=== PATIENT | female | born 1955 | race Caucasian/White ===

== ENCOUNTER 2016-11-04 07:09 | Day surgery (SDC) | payer OTHER ==
[~2016-11-04] VITALS: Ht 162.6 cm; Wt 76.3 kg
[2016-11-04] VITALS (16 sets, daily range): BP systolic 89–152; BP diastolic 49–76; PULSE 70–100; RESP 15–21; Ht 162.6 cm; Wt 76.3 kg
[~2016-11-04 07:09] MED LIST: ASPI-664 PO; EPHEDrine SULFATE 50 MG/5 ML SYG ONE; OMEG10006 PO
[2016-11-04] MEDS ORDERED: SOD CHLORIDE 0.9% 1,000 ML IV ONE (07:30)
[2016-11-04] MEDS ORDERED: CEFAZOLIN 2 GM/50 ML (PMX) 50 ML IVPB ONE (07:30)
[2016-11-04] MEDS ORDERED: MULTI PO (07:45)
[2016-11-04] MEDS ORDERED: ROCURONIUM 50 MG INJ ONE (08:01)
[2016-11-04] MEDS ORDERED: LIDOCAINE 2% (SDV) 5 ML INJ ONE (08:01)
[2016-11-04] MEDS ORDERED: SUCCINYLCHOLINE CHLORIDE 100 MG/5 ML SYG IV ONE (08:01)
[2016-11-04] MEDS ORDERED: FENTAnyl 50 MCG/ML VIAL ONE (08:02)
[2016-11-04] MEDS ORDERED: CEFAZOLIN 1 GM INJ ONE (08:02)
[2016-11-04] MEDS ORDERED: PROPOFOL 20 ML ONE (08:02)
[2016-11-04] MEDS ORDERED: MIDAZOLAM 1 MG/ML 2 ML INJ ONE (08:02)
[2016-11-04] MEDS ORDERED: HYDROmorphONE (0.2 MG/ML) 10ML SYG IV PRN (08:30)
[2016-11-04] MEDS ORDERED: MEPERIDINE 25 MG INJ IV PRN (08:30)
[2016-11-04] MEDS ORDERED: PROCHLORPERAZINE 10 MG INJ IV PRN (08:30)
[2016-11-04] MEDS ORDERED: FENTAnyl 50 MCG/ML VIAL IV PRN (08:30)
[2016-11-04] MEDS ORDERED: DIPHENHYDRAMINE 50 MG INJ IV PRN (08:30)
[2016-11-04] MEDS ORDERED: OXYCODONE/ACETAMINOPHEN (5/325) TAB PO PRN ×2 (08:30)
[2016-11-04] MEDS ORDERED: ONDANSETRON 4 MG INJ IV PRN ×2 (08:30→11:00)
[2016-11-04] MEDS ORDERED: PHENYLephrine (100 MCG/ML) 5ML SYG ONE (09:39)
--- NOTE | 2016-11-04 09:39 | HPN ---
Date/Time of Note Date/Time of Note DATE: 11/04/16 TIME: 09:39 Interval H&P Admission Note Pt. seen H&P reviewed: No system changes GUIDO PRASAD MD Nov 04, 2016 09:39
[2016-11-04] MEDS ORDERED: METOCLOPRAMIDE 10 MG INJ ONE (09:40)
[2016-11-04] MEDS ORDERED: ONDANSETRON 4 MG INJ ONE (09:40)
[2016-11-04] MEDS ORDERED: DEXAMETHASONE 4 MG/ML 1 ML INJ ONE (09:40)
[2016-11-04] MEDS ORDERED: BUPIVACAINE 0.25% (MPF) 30 ML INJ ONE (09:46)
[2016-11-04] MEDS ORDERED: NEOSTIGMINE 3 MG/3 ML SYRINGE ONE (09:59)
[2016-11-04] MEDS ORDERED: GLYCOPYRROLATE 0.4 MG INJ ONE (09:59)
[2016-11-04] MEDS ORDERED: KETOROLAC 30 MG INJ ONE (09:59)
--- NOTE | 2016-11-04 10:40 | OPR ---
Date/Time of Note Date/Time of Note DATE: 11/04/16 TIME: 10:36 Operative Report Procedure Date: Nov 04, 2016 Preoperative Diagnosis Chronic cholecystitis/cholelithiasis Postoperative Diagnosis Chronic cholecystitis/cholelithiasis Operation Performed Laparoscopic cholecystectomy Surgeon: GUIDO PRASAD MD Anesthesia: general Anesthesiologist: TONIE MULLINS MD Estimated Blood Loss: minimal Specimens Gallbladder Pt Condition Post Procedure: stable Disposition: PACU Indications The patient is a 61-year-old female who presented to the office with complaints of right upper quadrant abdominal pain for the past 3 months. The patient had clinical signs and symptoms of biliary colic and chronic cholecystitis which was confirmed via an ultrasound which showed the presence of gallstones. The patient was scheduled for laparoscopic cholecystectomy; possible open as definitive treatment to prevent further sequelae of gallstone disease which include but are not limited to: Gangrenous cholecystitis, choledocholithiasis, gallstone pancreatitis, ascending cholangitis, etc. All risks and benefits of the procedure including but not limited to: Wound infection, excessive bleeding , common bile duct injury, postoperative biliary leak, retained common bile duct stone, injury to intra-abdominal organs, conversion to open procedure, possible need for subsequent surgeries, etc. were all explained to the patient in full detail. She fully understood and wished to proceed with the procedure. Informed consent was therefore obtained. Operative\Procedure Findings Findings consistent with chronic cholecystitis. Cholelithiasis Procedure Description The patient was operating room and placed supine on the operating table. Bilateral sequential compression devices were placed on both lower extremities. Dose of broad-spectrum perioperative intravenous antibiotics was given. After the induction of smooth general endotracheal anesthesia the patient's abdomen was prepped and draped in the standard surgical fashion. After performance of the surgical timeout a 5 mm incision was made in the inferior umbilicus and a Veress needle was used to access the intra-abdominal cavity atraumatically. Pneumoperitoneum was then obtained and the Veress needle was exchanged for a 5 mm trocar through which a 5 mm laparoscope was placed. Three further working ports were then placed a 12 mm port in the sub-xiphoid region and two 5 mm ports in the right upper quadrant. All port sites were anesthetized with 0.25% Marcaine with epinephrine prior to incision. Using atraumatic graspers the gallbladder was grasped and retracted superiorly and laterally exposing the area of Hogan's pouch. Dissection was begun in this area using a combination of blunt dissection and hook electrocautery. The cystic duct was identified as it entered straight into the neck of the gallbladder. It was dissected free of surrounding tissues and clipped proximally and distally x 3 and transected using EndoShears. Dissection was then continued posteriorly. The cystic artery was identified in the posterior medial position and dissected free of surrounding tissues. It was clipped proximally and transected distally using the hook electrocautery. The gallbladder was then dissected off the liver bed using electrocautery. Once completely free the gallbladder was placed in an Endo Catch bag and withdrawn through the subxiphoid port site and passed off the field as specimen. Hemostasis was then inspected for and noted to be total. The abdomen was then irrigated with several liters of warm normal saline and the irrigant returned crystal clear. The fascia of the subxiphoid port site was then reapproximated using an Endo Close device and an 0 Vicryl suture. Pneumoperitoneum was then released and all remaining trochars were withdrawn under direct vision. The subcutaneous tissues were irrigated with more warm normal saline and further local anesthesia was applied around the skin of the incision sites. The skin was then reapproximated using 4-0 Monocryl sutures in subcuticular fashion. The incisions were cleaned and Dermabond was applied to the incisions and the patient was awoken from anesthesia and transported to the recovery room in stable condition. All counts were correct at the end of the case x 2. GUIDO PRASAD MD Nov 04, 2016 10:40
[2016-11-04] MEDS: HYDROmorphONE (0.2 MG/ML) 10ML SYG IV PRN ×2 (10:55→11:05)
[2016-11-04] MEDS ORDERED: morphine 2 MG INJ IV PRN (11:00)
[2016-11-04] MEDS ORDERED: HYDROCODONE/APAP (5/325) TAB PO PRN ×2 (11:00)
== END 2016-11-04 12:30 | disposition home or self-care (01) ==
LOC: SDS 07:09 → EDSEX 09:30 → SDS 12:30
PROVIDERS: ATTEND Surgery
DX: K80.10 Calculus of gallbladder with chronic cholecystitis without obstruction (principal); E78.5 Hyperlipidemia, unspecified; F32.9 Major depressive disorder, single episode, unspecified; E66.9 Obesity, unspecified; Z68.28 Body mass index [BMI] 28.0-28.9, adult
CPT/HCPCS: 47562; 88304; J0690; J1100; J1170; J1885; J2250; J2370; J2405; J2710; J2765; J3010; J7999; Z7512; Z7610